=== PATIENT | male | born 1960 ===

== ENCOUNTER 2023-08-17 06:50 | Day surgery (SDC) | payer OTHER ==
[2023-08-15 09:57] VITALS: BP 136/69; PULSE 66; RESP 18
[2023-08-15 09:57] LABS: BASOPHILS # (AUTO) 0.07 K/uL (0.00-0.20); BASOPHILS % (AUTO) 0.8 % (0.0-5.0); EOSINOPHILS # (AUTO) 0.36 K/uL (0.00-0.70); HEMATOCRIT 41.9 % (42-54); IMMATURE GRANULOCYTE ABSOLUTE 0.04 K/uL (0-1); LYMPHOCYTES % (AUTO) 32.6 % (21.0-51.0); MEAN CORPUSCULAR HEMOGLOBIN 31.5 pg (27.0-33.0); MEAN CORPUSCULAR HGB CONC 34.6 g/dL (32.0-36.0); MEAN CORPUSCULAR VOLUME 90.9 fL (79-99); MONOCYTES # (AUTO) 0.8 K/uL (0.1-1.0); MONOCYTES % (AUTO) 8.7 % (3.0-13.0); NEUTROPHILS # (AUTO) 4.8 K/uL (1.8-7.7); NEUTROPHILS % (AUTO) 53.5 % (40.0-77.0); PLATELET COUNT (AUTO) 271 K/uL (130-400); RED BLOOD CELL COUNT(AUTO) 4.61 MIL/uL (4.50-6.20); RED CELL DISTRIBUTION WIDTH 11.8 % (11.0-15.5); WHITE BLOOD COUNT (AUTO) 9.1 K/uL (4.8-10.8)
[2023-08-15 10:07] LABS: INR 1.23 (0.85-1.15); PROTHROMBIN TIME 14.1 SEC (9.6-11.6)
[2023-08-15 10:08] LABS: PARTIAL THROMBOPLASTIN TIME 39.8 SEC (26.3-35.5)
[2023-08-15 10:09] LABS: CREATININE 1.1 mg/dL (0.5-1.5)
[~2023-08-17] VITALS: Ht 185.4 cm; Wt 124.2 kg
[2023-08-17] VITALS (10 sets, daily range): BP systolic 102–133; BP diastolic 55–72; PULSE 57–67; RESP 10–16
[~2023-08-17 06:50] MED LIST: AEC81 PO; AMLO-258 PO; CETI10TA57 PO; CHLO25TA3 PO; CHOL500062 PO; CYAN50009 PO; ESCI20TA38 PO; GLIM4TAB36 PO; KRIL500C PO; LISI20TA24 PO; METF-446 PO; METO-391 PO; PREG75CA76 PO; RANO500T2 PO; RIVA20TA PO; ROSU10TA28 PO; SEMA0.258 SQ
[2023-08-17] MEDS ORDERED: 0.9%NACL 1000ML 1,000 ML IV ONE (07:12)
[2023-08-17] MEDS ORDERED: IOHEXOL 350 MG/ML 100ML INFUS..BTL IV ONE ×2 (09:06→14:40)
[2023-08-17] MEDS ORDERED: LIDOCAINE HCL 400MG/20ML VIAL ONE (09:06)
[2023-08-17] MEDS ORDERED: NITROGLYCERIN 50MG VIAL ONE (09:06)
[2023-08-17] MEDS ORDERED: NICARDIPINE 25MG INJ IV ONE (09:06)
[2023-08-17] MEDS ORDERED: HEPARIN 10,000 UNIT/10ML (1,000 UNIT/ML) VIAL ONE (09:07)
[2023-08-17] MEDS ORDERED: FENTANYL CITRATE PF 50 MCG/1 ML 2ML VIAL ONE (13:17)
[2023-08-17] MEDS ORDERED: MIDAZOLAM HCL 1 MG/ML 2ML VIAL ONE (13:17)
[2023-08-17] MEDS ORDERED: CLOPIDOGREL 300MG TAB ONE ×2 (14:05→14:08)
[2023-08-17] MEDS ORDERED: ASPIRIN 325MG EC TAB PO ONE (14:08)
[2023-08-17] MEDS ORDERED: 0.9%NACL 1000ML 1,000 ML IV SCH (15:00)
== END 2023-08-17 18:57 | disposition home or self-care (01) ==
LOC: DAH 06:50
PROVIDERS: ATTEND Internal Medicine Cardiovascular Disease
DX: I25.119 Atherosclerotic heart disease of native coronary artery with unspecified angina pectoris (principal); I25.719 Atherosclerosis of autologous vein coronary artery bypass graft(s) with unspecified angina pectoris; I25.82 Chronic total occlusion of coronary artery; I48.0 Paroxysmal atrial fibrillation; I47.29 Other ventricular tachycardia; I10 Essential (primary) hypertension; F32.A Depression, unspecified; E11.9 Type 2 diabetes mellitus without complications; E78.5 Hyperlipidemia, unspecified; Z79.899 Other long term (current) drug therapy; Z79.01 Long term (current) use of anticoagulants; Z79.82 Long term (current) use of aspirin; Z79.84 Long term (current) use of oral hypoglycemic drugs; Z98.890 Other specified postprocedural states; Z82.49 Family history of ischemic heart disease and other diseases of the circulatory system
CPT/HCPCS: 80048; 85025; 85610; 85730; 36415; 71045; 93005; 82948 ×2; 93459; C9600; C1894 ×5; C1725 ×2; C1760; C1874; C1887; C1769; J3010; J3490 ×3; J7030; J1644 ×2; J2250; Q9967 ×2; A4215; A4222; A4221; A4663; A4216; A4606; Q9965 ×3; A4223 ×3; 99156; 99157